=== PATIENT | female | born 1995 | race Hispanic/Latino ===

== ENCOUNTER 2022-01-05 20:11 | Emergency (ER) | payer MEDICARE, OTHER ==
[~2022-01-05] VITALS: Ht 157.5 cm; Wt 71.2 kg
[~2022-01-05 20:11] MED LIST: NIFEDICAL XL30 MG PO
[2022-01-05] MEDS ORDERED: HYDROCODONE/APAP 5MG-325MG TAB PO ONE (20:45)
[2022-01-05] MEDS ORDERED: CLONIDINE HCL 0.1 MG TAB PO ONE ×2 (20:45→21:45)
[2022-01-05] MEDS ORDERED: ONDANSETRON HCL 4 MG ORAL DISINTEGRATING TAB PO ONE (20:45)
[2022-01-05] MEDS ORDERED: IBUPROFEN 200 MG TAB PO ONE (20:45)
[2022-01-05] MEDS ORDERED: IBUPROFEN 600 MG TAB ONE (20:57)
[2022-01-05] MEDS ORDERED: ONDANSETRON HCL 4 MG ORAL DISINTEGRATING TAB ONE (20:57)
[2022-01-05] MEDS ORDERED: LOSARTAN POTAS100 MG PO (20:57)
[2022-01-05] MEDS ORDERED: CLONIDINE HCL 0.1 MG TAB ONE ×2 (20:57→21:41)
[2022-01-05] MEDS ORDERED: ONDANSETRON ODT4 MG PO (20:57)
[2022-01-05] MEDS ORDERED: ESGIC 50-325-41 EACH PO (20:57)
[2022-01-05] MEDS ORDERED: HYDROCODONE/APAP 5MG-325MG TAB ONE (20:58)
[2022-01-05 22:42] VITALS: BP 156/88
== END 2022-01-05 22:42 | disposition home or self-care (01) ==
LOC: FSED 20:31
DX: R51.9 Headache, unspecified (principal); I16.0 Hypertensive urgency; I10 Essential (primary) hypertension
CPT/HCPCS: 70450; 81003; 81025; 99283; Q0162